=== PATIENT | male | born 1950 | race Caucasian/White ===

== ENCOUNTER 2016-10-18 19:25 | Emergency (ER) | payer MEDICARE ==
[~2016-10-18] VITALS: Ht 195.6 cm; Wt 113.4 kg
[~2016-10-18 19:25] MED LIST: ACETAMINOPHEN-1 EAC1 PO; ALL DAY ALLERGY10 M1 PO; ALPRAZOLAM1 MG PO; ASPIRIN EC325 MG PO; CHLORTHALIDONE25 MG PO; CYCLOBENZAPRINE10 MG PO; DIGOXIN125 MCG PO; DILTIAZEM 24HR120 M1 PO; DILTIAZEM ER180 MG PO; GABAPENTIN300 MG PO; L-METHYLFOLATE15 MG PO; LASIX20 MG PO; LEVOTHYROXINE125 MCG PO; MELOXICAM15 MG PO; METOPROLOL SUCC50 MG PO; METOPROLOL TART50 MG PO; MUPIROCIN22 GM TOP; POTASSIUM CHLO20 ME1 PO; SERTRALINE HCL50 MG PO; VITAMIN C100 MG PO; WARFARIN SODIUM5 MG PO; XANAX1 MG PO
[2016-10-18] MEDS ORDERED: SERTRALINE HCL100 MG PO (19:38)
[2016-10-18] MEDS ORDERED: NORCO 5-325 TA1 EACH PO (20:58)
== END 2016-10-18 21:30 | disposition home or self-care (01) ==
LOC: ED 19:25
DX: S91.202A Unspecified open wound of left great toe with damage to nail, initial encounter (principal); I10 Essential (primary) hypertension; I48.91 Unspecified atrial fibrillation; F41.9 Anxiety disorder, unspecified; Z79.899 Other long term (current) drug therapy; X50.9XXA Other and unspecified overexertion or strenuous movements or postures, initial encounter
CPT/HCPCS: 11730; 90471; 90715; 99283